=== PATIENT | male | born 1995 | race Caucasian/White ===

== ENCOUNTER 2023-11-22 10:54 | Emergency (ER) | payer SELFPAY ==
[2023-11-22 11:06] VITALS: BP 119/72; PULSE 50; RESP 18; TEMP 98; BMI 21.2
[2023-11-22] MEDS: KETOROLAC TROMETHAMINE 30 MG/1 ML VIAL IM ONE (13:04)
[2023-11-22] MEDS ORDERED: KETOROLAC TROMETHAMINE 30 MG/1 ML VIAL ONE (13:05)
== END 2023-11-22 13:31 | disposition home or self-care (01) ==
LOC: JERFT 10:54
PROC: 3E0133Z Introduction of Anti-inflammatory into Subcutaneous Tissue, Percutaneous Approach (ICD-10-PCS; principal; 2023-11-22)
DX: M79.601 Pain in right arm (principal); M79.602 Pain in left arm
CPT/HCPCS: 99284-25